=== PATIENT | male | born 1965 | race Caucasian/White ===

== ENCOUNTER 2024-01-05 09:34 | Outpatient (CLI) | payer OTHER, SELFPAY ==
--- NOTE | 2024-01-05 09:41 | CA_ITS ---
APPROVED REPORT EXAM: Comprehensive 2D, Doppler, and color-flow Echocardiogram [employer] Ex[employer]ator: Syeda Fenton RDCS Ht: 6 ft 0 in Wt: 205lbs BSA: 2.15 BP: 110/70 mmHg Indications: IHD EF CHECK M-Mode Dimensions RVDd 2.20 cm (0.9-2.6) LA Diam 3.35 cm (1.9-4.0) LVDd 5.70 cm (3.5-5.7) LVDs 4.22 cm (3.5-5.7) IVSd 0.87 cm (0.6-1.1) PWd 0.84 cm (0.6-1.1) EF (Teich) 50.30% FS 26.00% EDV (Teich) 160.00 mL TAPSE 2.71 (<1.7) ESV (Teich) 79.50 mL LV Diastology E Decel Time 157 (160-240 msec) E/A Ratio 1.1 Mitral Valve MV E Max Db. 57.0 (40-130 cm/s) MV A Velocity 53.0 (40-130 cm/s) E/A Ratio 1.07 MV PHT 46.0 ms Left Ventricle The left ventricle is normal size. The left ventricular systolic function is normal. The left ventricular ejection fraction is within the normal range. There is increased LV wall thickness. There is normal LV segmental wall motion. The left ventricular diastolic function is normal. LVEF is 55%. Right Ventricle Right ventricle is mildly dilated. The right ventricular systolic function is normal. Atria The left atrium size is normal. The right atrium size is normal. There is no Doppler evidence of interatrial shunt. Aortic Valve The aortic valve opens well. The aortic valve is trileaflet. Trace aortic regurgitation. There is no aortic valvular stenosis. Mitral Valve The mitral valve is normal in structure. No evidence of mitral valve stenosis. Trace mitral regurgitation. Tricuspid Valve Tricuspid valve is grossly normal in structure and function. Trace tricuspid regurgitation. There is insufficient TR jet to estimate RVSP. Pulmonic Valve The pulmonary valve is normal in structure. Trace pulmonic regurgitation. Great Vessels The aortic root is normal in size. The ascending aorta is not well-visualized. IVC is normal in size and collapses >50% with inspiration. Pericardium There is no pericardial effusion. Other Information Study Quality: Adequate Conclusion Normal biventricular systolic function. Mild RV dilation. No significant valvular stenosis or regurgitation. Electronically signed by : Gosia Valente MD 01/11/2024 03:14:00
[2024-01-05 09:57] LABS: Microscopic, Urine URINE MICROSCOPIC (MICROSCOPIC)
[2024-01-05 10:22] LABS: Appearance,Urine CLEAR (Clear); Bilirubin,Urine Negative (Negative); Blood, Urine Negative (Negative); Color,Urine YELLOW (Yellow); Glucose,Urine (UA) 2+ (Negative); Ketones,Urine Negative (Negative); Leukocyte Esterase,Urine Negative (Negative); Nitrate,Urine Negative (Negative); Protein,Urine Negative (Negative); Specific Gravity, Urine 1.025 (1.005-1.030); Urobilinogen,Urine 0.2 EU/dl (0.2)
--- NOTE | 2024-01-05 10:24 | ECG_ITS ---
APPROVED REPORT Exam: Resting ECG HR:57 bpm ECG Measurements Heart Rate 57 AXES WV 144 P -6 QRSd 97 QRS 56 QT 411 T 11 QTc 405 Conclusion SINUS BRADYCARDIA BORDERLINE ECG UNCONFIRMED REPORT Electronically signed by : Ben Brunson MD 01/06/2024 08:36:26
[2024-01-05 10:43] LABS: Alanine Aminotransferase 24 U/L (12-78); Albumin Level 4.1 g/dl (3.5-5.0); Albumin/Globulin Ratio 1.9 (1.1-1.8); Alkaline Phosphatase 65 U/L (38-126); Anion Gap 6.4 mEq/L (5-15); Aspartate Amino Transferase 21 U/L (17-59); Bilirubin,Total 0.6 mg/dl (0.2-1.3); Blood Urea Nitrogen 16 mg/dl (9-20); Carbon Dioxide 29 mmol/L (22.0-30.0); Chloride 103 mmol/L (98-107); Estimated Glomerular Filt Rate 86 ml/min (>60); GFR (African American) 105 ML/MIN (>60); Globulin 2.2 g/dL (1.3-3.2); Glucose 223 mg/dl (74-100); Potassium 4.4 mmoL/L (3.5-5.1); Sodium 134 mmol/L (136-145); Total Protein,Serum 6.3 g/dl (6.3-8.2)
== END 2024-01-05 23:59 | disposition home or self-care (01) ==
LOC: RT 09:37
PROVIDERS: PCP Family Medicine; Visit Provider Chiropractor
DX: I25.9 Chronic ischemic heart disease, unspecified (principal); E11.9 Type 2 diabetes mellitus without complications
CPT/HCPCS: 36415; 80053; 81001; 93005; 93306